=== PATIENT | female | born 1950 | race Caucasian/White ===

== ENCOUNTER 2024-10-03 11:18 | Outpatient (CLI) | payer MEDICARE, SELFPAY ==
--- NOTE | ~2024-10-03 | XR_ITS ---
EXAMINATION: XR sacrum coccyx min 2V DATE: 10/03/2024 12:02 INDICATION: Sacrococcygeal injury. TECHNIQUE: 3 views of the sacrum and coccyx were obtained. COMPARISON: None. FINDINGS: Alignment is normal. No fracture. There is mild lumbar spondylosis. 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 IMPRESSION: 1. No fracture. Reviewed, dictated and finalized at location A. ET INSPECTOR IMPRESSION: 1. No fracture.
== END 2024-10-03 11:19 | disposition home or self-care (01) ==
PROVIDERS: PCP Internal Medicine; Visit Provider Internal Medicine
DX: M54.18 Radiculopathy, sacral and sacrococcygeal region (principal); W19.XXXA Unspecified fall, initial encounter
CPT/HCPCS: 72220